=== PATIENT | female | born 1985 | race Caucasian/White ===

== ENCOUNTER 2017-06-16 11:49 | Emergency (ER) | payer MEDICAID ==
[~2017-06-16] VITALS: Ht 172.7 cm; Wt 60.0 kg
[~2017-06-16 11:49] MED LIST: IBUP-1985 PO; NO HOME MEDS
[2017-06-16 12:10] VITALS: BP 118/85
[2017-06-16] MEDS ORDERED: proparacaine 0.5% ophthalmic drops 15ml LEFTEYE ONE (14:10)
[2017-06-16] MEDS ORDERED: traMADol 50MG tablet PO ONE (15:05)
[2017-06-16] MEDS ORDERED: IBUP-1985 PO (15:11)
[2017-06-16] MEDS ORDERED: TRAM50TA2 PO (15:11)
[2017-06-16] MEDS ORDERED: ibuprofen 200mg tablet PO ONE (15:15)
== END 2017-06-16 15:28 | disposition home or self-care (01) ==
LOC: ER 11:49
DX: H57.12 Ocular pain, left eye (principal); F12.10 Cannabis abuse, uncomplicated; Z88.1 Allergy status to other antibiotic agents; Z88.8 Allergy status to other drugs, medicaments and biological substances
CPT/HCPCS: 99283

== ENCOUNTER 2018-04-14 18:14 | Emergency (ER) | payer MEDICAID ==
[~2018-04-14] VITALS: Ht 172.7 cm; Wt 47.7 kg
[2018-04-14 19:16] LABS: BASOPHILS % (AUTO) 0.2 % (0-1); EOSINOPHILS % (AUTO) 0.4 % (0-6); HEMOGLOBIN 13.4 g/dl (12.0-16.0); LYMPHOCYTES # (AUTO) 1.9 X10'3 (1.1-4.8); LYMPHOCYTES % (AUTO) 34.8 % (21-51); MEAN CORPUSCULAR HEMOGLOBIN 32.8 PG (27.0-31.0); MEAN CORPUSCULAR HGB CONC 33.6 % (33.0-36.5); MEAN CORPUSCULAR VOLUME 97.6 FL (78-98); MEAN PLATELET VOLUME 8.1 FL (7.4-10.4); MONOCYTES # (AUTO) 0.4 X10'3 (0-0.9); MONOCYTES % (AUTO) 6.7 % (2-12); NEUTROPHILS # (AUTO) 3.2 X10'3 (1.8-7.7); NEUTROPHILS % (AUTO) 57.9 % (42-75); PLATELET COUNT 162 X10'3 (140-440); RED CELL DISTRIBUTION WIDTH 12.8 % (11.5-14.5); WHITE BLOOD COUNT 5.5 X10'3 (4.5-11.0)
[2018-04-14 19:26] LABS: ALANINE AMINOTRANSFERASE 25 U/L (12-78); ALBUMIN 4.1 G/DL (3.4-5.0); ALBUMIN/GLOBULIN RATIO 1.3 (1.1-1.5); ALKALINE PHOSPHATASE 63 IU/L (46-116); ANION GAP 11 (8-16); ASPARTATE AMINO TRANSFERASE 13 U/L (10-37); BILIRUBIN,TOTAL 0.7 MG/DL (0.1-1.0); BLOOD UREA NITROGEN 15 MG/DL (7-18); BUN/CREATININE RATIO 22.4 (6.6-38.0); CALCIUM 9.1 MG/DL (8.5-10.1); CHLORIDE 103 MMOL/L (99-107); CREATININE 0.67 MG/DL (0.40-0.90); GLUCOSE 103 MG/DL (70-104); INR 1.1 INR; PARTIAL THROMBOPLASTIN TIME 30 SECONDS (22-32); POTASSIUM 3.3 MMOL/L (3.5-5.1); PROTHROMBIN TIME 10.7 SECONDS (9.0-12.0); SODIUM 141 MMOL/L (135-145); TOTAL CARBON DIOXIDE 26.7 MMOL/L (24-32); TOTAL PROTEIN 7.2 G/DL (6.4-8.2); eGFR > 90 ML/MIN
[2018-04-14] MEDS ORDERED: PROP10TA10 PO (20:04)
[2018-04-14] MEDS ORDERED: METH10TA6 PO (20:04)
[2018-04-14 20:52] VITALS: BP 125/80
== END 2018-04-14 20:53 | disposition home or self-care (01) ==
LOC: ER 18:15
DX: R07.89 Other chest pain (principal); R00.2 Palpitations; E07.9 Disorder of thyroid, unspecified; F17.200 Nicotine dependence, unspecified, uncomplicated; F12.90 Cannabis use, unspecified, uncomplicated; Z88.1 Allergy status to other antibiotic agents; Z88.8 Allergy status to other drugs, medicaments and biological substances; Z79.899 Other long term (current) drug therapy
CPT/HCPCS: 36415; 71045; 80053; 84484; 85025; 85610; 85730; 93005; 99284

== ENCOUNTER 2018-11-06 19:18 | Emergency (ER) | payer MEDICAID ==
[~2018-11-06] VITALS: Ht 172.7 cm; Wt 47.0 kg
[~2018-11-06 19:18] MED LIST changes: -IBUP-1985 PO; +METH10TA6 PO; -NO HOME MEDS; +PROP10TA10 PO
[2018-11-06 19:20] VITALS: BP 136/90
[2018-11-06] MEDS ORDERED: ketorolac trometh inj. 60 MG/2 ML VIAL IM ONE (19:35)
[2018-11-06] MEDS ORDERED: orphenadrine citrate 60mg/2ml inj. IM ONE (19:35)
[2018-11-06] MEDS ORDERED: dexamethasone sod phosphate 10mg/ml inj IM STA (20:09)
[2018-11-06] MEDS ORDERED: ORPH100T2 PO (20:13)
[2018-11-06] MEDS ORDERED: ondansetron 4mg rapidly disintigrating tab PO ONE (20:15)
[2018-11-06] MEDS ORDERED: oxyCODONE/APAP 10/325mg tablet PO ONE (20:15)
== END 2018-11-06 20:31 | disposition home or self-care (01) ==
LOC: ER 19:19
DX: S39.012A Strain of muscle, fascia and tendon of lower back, initial encounter (principal); M54.41 Lumbago with sciatica, right side; M62.830 Muscle spasm of back; G89.29 Other chronic pain; F41.9 Anxiety disorder, unspecified; F12.90 Cannabis use, unspecified, uncomplicated; Z87.442 Personal history of urinary calculi; Z88.1 Allergy status to other antibiotic agents; Z88.8 Allergy status to other drugs, medicaments and biological substances; Z79.899 Other long term (current) drug therapy; X58.XXXA Exposure to other specified factors, initial encounter; Y93.89 Activity, other specified; Y92.89 Other specified places as the place of occurrence of the external cause; Y99.8 Other external cause status
CPT/HCPCS: 72100; 96372; 99283; J1100; J1885; J2360; J2405

== ENCOUNTER 2023-07-01 11:20 | Emergency (ER) | payer MEDICAID ==
[~2023-07-01] VITALS: Ht 172.7 cm; Wt 60.0 kg
[~2023-07-01 11:20] MED LIST changes: +ACET-1084 PO; +CIPR-259 PO; +IBUP-1985 PO; +METH-375 PO; -METH10TA6 PO; +ORPH100T4 PO
[2023-07-01 11:57] VITALS: TEMP 98.5
[2023-07-01 13:15] LABS: LYMPHOCYTES # (AUTO) 0.9 X10'3 (1.1-4.8); MONOCYTES # (AUTO) 0.3 X10'3 (0-0.9); RED BLOOD COUNT 4.18 X10'6 (4.20-5.60); WHITE BLOOD COUNT 4.3 X10'3 (4.5-11.0)
[2023-07-01 13:18] LABS: BASOPHILS % (AUTO) 0.3 % (0-1); EOSINOPHILS % (AUTO) 0.1 % (0-6); HEMATOCRIT 39.9 % (35.0-45.0); HEMOGLOBIN 13.3 g/dl (12.0-16.0); LYMPHOCYTES % (AUTO) 21.8 % (21-51); MEAN CORPUSCULAR HEMOGLOBIN 31.8 PG (27.0-31.0); MEAN CORPUSCULAR HGB CONC 33.3 g/dL (33.0-36.5); MEAN CORPUSCULAR VOLUME 95.5 FL (78-98); MEAN PLATELET VOLUME 8.7 FL (7.4-10.4); MONOCYTES % (AUTO) 7.8 % (2-12); PLATELET COUNT 193 X10'3 (140-440); RED CELL DISTRIBUTION WIDTH 13.4 % (11.5-14.5)
[2023-07-01 13:30] LABS: BILIRUBIN,URINE SMALL (Neg); CLARITY,URINE TURBID (Clear); COLOR,URINE AMBER (Yellow); GLUCOSE, URINE NEGATIVE (Neg); KETONES,URINE NEGATIVE (Neg); LEUKOCYTE ESTERASE ,URINE TRACE (Neg); NITRITES, URINE NEGATIVE (Neg); OCCULT BLOOD,URINE LARGE (Neg); PH,URINE 6.5 (4.8-8.0); PROTEIN,URINE >=300 mg/dl (Neg); UROBILINOGEN,URINE 0.2 E.U/dL (0.2-1.0)
[2023-07-01 13:32] LABS: ALANINE AMINOTRANSFERASE 16 U/L (12-78); ALBUMIN 4.1 G/DL (3.4-5.0); ALBUMIN/GLOBULIN RATIO 1.2 (1.1-1.5); ALKALINE PHOSPHATASE 62 IU/L (46-116); ANION GAP 9 (8-16); ASPARTATE AMINO TRANSFERASE 17 U/L (10-37); BILIRUBIN,TOTAL 0.4 MG/DL (0.1-1.0); BLOOD UREA NITROGEN 8 MG/DL (7-18); BUN/CREATININE RATIO 11.9 (10.0-20.0); CALCIUM 8.5 MG/DL (8.5-10.1); CHLORIDE 105 MMOL/L (99-107); CREATININE 0.67 MG/DL (0.40-0.90); GLUCOSE 92 MG/DL (70-104); LIPASE 33 U/L (16-77); POTASSIUM 3.6 MMOL/L (3.5-5.1); SODIUM 141 MMOL/L (135-145); TOTAL CARBON DIOXIDE 26.6 MMOL/L (24-32); TOTAL PROTEIN 7.4 G/DL (6.4-8.2); eCRCL 110 ML/MIN; eGFR > 90 ML/MIN
[2023-07-01 13:35] LABS: URINE HCG NEGATIVE (NEG)
[2023-07-01 13:36] LABS: UA COLLECTION TYPE CLN CATCH MIDSTREAM
[2023-07-01 13:37] LABS: RBC,URINE TNTC /HPF (0-2); SQUAMOUS EPITHELIAL CELL,UR MODERATE /LPF (FEW)
[2023-07-01 13:38] LABS: CAL OXALATE CRYSTALS 4+ /HPF (NEGATIVE)
[2023-07-01 13:39] LABS: BACTERIA,URINE NONE SEEN /HPF (Neg); TRANSITIONAL EPI CELLS,URINE FEW /HPF
[2023-07-01] MEDS ORDERED: HYDROcodone/acetaminophen 10/325mg tab PO ONE (15:50)
[2023-07-01] MEDS ORDERED: normal saline 1000ML IV soln IVB ONE (15:50)
[2023-07-01] MEDS ORDERED: ibuprofen tablet 400 MG TABLET PO ONE (15:50)
[2023-07-01] MEDS: oxyCODONE/APAP 10/325mg tablet PO ONE (20:01)
[2023-07-01] MEDS: LORazepam 1 MG tablet PO ONE (20:01)
[2023-07-01] MEDS: ketorolac trometh inj. 60 MG/2 ML VIAL IM ONE (20:07)
[2023-07-01] MEDS: tamsulosin 0.4mg capsule PO SCH (20:08)
[2023-07-01] MEDS: ondansetron 4mg rapidly disintigrating tab PO ONE (20:08)
[2023-07-01] MEDS: acetaminophen 325mg tablet PO ONE (20:58)
[2023-07-01] MEDS: traMADol 50MG tablet PO ONE (20:58)
[2023-07-01 21:01] VITALS: BP 121/84; PULSE 75; RESP 18; O2SAT 99
[2023-07-01] MEDS ORDERED: NAPR-56 PO (21:18)
[2023-07-01] MEDS ORDERED: CLIN300C17 PO (21:18)
[2023-07-01] MEDS ORDERED: ONDA4TAB12 PO (21:18)
[2023-07-01] MEDS ORDERED: ACET-812 PO (21:18)
[2023-07-01] MEDS ORDERED: PANT-47 PO (21:18)
== END 2023-07-01 21:33 | disposition home or self-care (01) ==
LOC: ER 11:20
DX: N13.30 Unspecified hydronephrosis (principal); K80.20 Calculus of gallbladder without cholecystitis without obstruction; D71 Functional disorders of polymorphonuclear neutrophils
CPT/HCPCS: 36415; 74176; 80053; 81001; 81025; 83690; 85025; 87088; 96372; 99285; J1885; J7030